=== PATIENT | female | born 1950 | race Hispanic/Latino ===

== ENCOUNTER 2017-09-11 07:39 | Day surgery (SDC) | payer MEDICARE, MEDICAID ==
[~2017-09-11] VITALS: Ht 154.9 cm; Wt 86.2 kg
[~2017-09-11 07:39] MED LIST: AMLODIPINE10 MG PO; LISINOP/HCTZ1 TA2 PO; LISINOPRIL20 MG PO; METFORMIN500 MG PO; MULT VITAMIN PO; SIMVASTATIN20 MG PO
[2017-09-11 10:55] VITALS: BP 118/62
== END 2017-09-11 10:45 | disposition home or self-care (01) ==
LOC: ORM 07:39
PROVIDERS: ATTEND Surgery
PROC: 0DJD8ZZ Inspection of Lower Intestinal Tract, Via Natural or Artificial Opening Endoscopic (ICD-10-PCS; principal; 2017-09-11)
DX: K64.1 Second degree hemorrhoids (principal); I10 Essential (primary) hypertension; E11.9 Type 2 diabetes mellitus without complications

== ENCOUNTER 2018-04-29 14:24 | Emergency (ER) | payer MEDICARE, MEDICAID ==
[~2018-04-29] VITALS: Ht 172.7 cm; Wt 100.0 kg
[2018-04-29] MEDS ORDERED: MOTRIN400 MG PO (16:30)
[2018-04-29] MEDS ORDERED: VOLTAREN1%GEL TOP (16:30)
[2018-04-29 16:55] VITALS: BP 137/78
== END 2018-04-29 16:55 | disposition home or self-care (01) ==
LOC: ED 14:24
DX: S46.911A Strain of unspecified muscle, fascia and tendon at shoulder and upper arm level, right arm, initial encounter (principal); E11.9 Type 2 diabetes mellitus without complications; X58.XXXA Exposure to other specified factors, initial encounter

== ENCOUNTER 2018-08-25 13:54 | Emergency (ER) | payer MEDICARE, MEDICAID ==
[~2018-08-25] VITALS: Ht 172.7 cm; Wt 88.2 kg
[~2018-08-25 13:54] MED LIST changes: +MOTRIN400 MG PO; +VOLTAREN1%GEL TOP
[2018-08-25] MEDS ORDERED: LOPRESSOR25 M1 PO (14:11)
[2018-08-25] MEDS ORDERED: TORADOL PO (16:07)
[2018-08-25 16:20] VITALS: BP 136/76
== END 2018-08-25 16:20 | disposition home or self-care (01) ==
LOC: ED 13:54
DX: S86.911A Strain of unspecified muscle(s) and tendon(s) at lower leg level, right leg, initial encounter (principal); E11.9 Type 2 diabetes mellitus without complications; I10 Essential (primary) hypertension; E78.5 Hyperlipidemia, unspecified; X58.XXXA Exposure to other specified factors, initial encounter; M25.561 Pain in right knee; M79.89 Other specified soft tissue disorders

== ENCOUNTER 2023-07-24 12:00 | Emergency (ER) | payer MEDICARE, MEDICAID ==
[2023-07-24] VITALS (10 sets, daily range): BP systolic 108–138; BP diastolic 57–75
[~2023-07-24] VITALS: Ht 172.7 cm; Wt 68.0 kg
[~2023-07-24 12:00] MED LIST changes: +LOPRESSOR25 M1 PO; +TORADOL PO
[2023-07-24 12:44] LABS: BASO% 0.2 % (0-3); EOS% 0.4 % (0-8); HEMATOCRIT 48.1 % (37.0-47.0); HEMOGLOBIN 16.2 g/dl (12.0-16.0); IMMATURE GRANULOCYTES 0.1 % (0.0-5.0); LYMPH% 15.1 % (15-41); MEAN CELL VOLUME 92.9 fL CALC (80.0-100.0); MEAN CORPUSCULAR HGB 31.3 pG CALC (26.0-32.0); MEAN CORPUSCULAR HGB CONC 33.7 g/dL CAL (32.0-36.0); NEUT# 7.13 thou/uL (2.00-7.15); NEUT% 76.2 % (42-76); RED BLOOD COUNT 5.18 mill/uL (4.20-5.60); RED CELL DISTRI WIDTH 12.1 % (11.5-15.5)
[2023-07-24 13:22] LABS: ALBUMIN 4.6 g/dL (3.2-5.0); ALKALINE PHOSPHATASE 143 u/l (38-126); ANION GAP 13 (6-22 (CALC)); BILIRUBIN, TOTAL 0.9 mg/dL (0.02-1.3); BUN 14 mg/dL (8-23); BUN/CREATININE RATIO 16 (12-20 (CALC)); CARBON DIOXIDE 31 mmol/l (22-30); CHLORIDE 100 mmol/l (95-108); CREATININE 0.8 mg/dL (0.5-1.0); GFR FOR AFR.AMER. > 60 ML/MIN (>=60 (CALC)); GFR OTHER RACES > 60 ML/MIN (>=60 (CALC)); LIPASE 47 u/l (23-300); SGOT/AST 44 u/l (9-36); SODIUM 139 mmol/l (137-146); TOTAL PROTEIN 8.5 g/dL (6.3-8.2)
[2023-07-24 16:26] LABS: URINE BILIRUBIN - DIPSTICK Negative (NEGATIVE); URINE BLOOD DIPSTICK Negative (NEGATIVE); URINE GLUCOSE - DIPSTICK Negative (NEGATIVE); URINE KETONE Negative (NEGATIVE); URINE LEUK ESTERASE Trace (NEGATIVE); URINE NITRITE - DIPSTICK Negative (Negative); URINE PH 8.5 (4.5-8.0); URINE PROTEIN - DIPSTICK Negative (NEG-TRACE); URINE SPECIFIC GRAVITY 1.015; URINE UROBILINOGEN - DIPSTICK 0.2 E.U./dL (0.2)
[2023-07-24 16:29] LABS: URINE COLOR Yellow
== END 2023-07-24 20:20 ==
LOC: ED 12:00
PROVIDERS: Nurse Practitioner
DX: K56.609 Unspecified intestinal obstruction, unspecified as to partial versus complete obstruction (principal); C18.9 Malignant neoplasm of colon, unspecified; I10 Essential (primary) hypertension; E11.9 Type 2 diabetes mellitus without complications; E78.5 Hyperlipidemia, unspecified; Z79.84 Long term (current) use of oral hypoglycemic drugs; Z90.49 Acquired absence of other specified parts of digestive tract
CPT/HCPCS: Q9967

== ENCOUNTER 2023-10-12 07:34 | Day surgery (SDC) | payer MEDICARE, MEDICAID ==
[~2023-10-12] VITALS: Ht 165.1 cm; Wt 78.5 kg
[~2023-10-12 07:34] MED LIST changes: +LEVOTHYROXIN75 MC1 PO; +METFORMIN HCL1000 MG PO; +NORVASC2.5 M1 PO
[2023-10-12] MEDS ORDERED: SODIUM CHLORIDE 0.9% 1,000 ML IV ONE (07:59)
[2023-10-12] MEDS ORDERED: FAMOTIDINE 10MG/ML 2ML SDV IV ONE (07:59)
[2023-10-12] MEDS ORDERED: CLINDAMYCIN PHOSPHATE IN D5W 50 ML IV ONE (07:59)
[2023-10-12] MEDS ORDERED: CLINDAMYCIN PHOSPHATE IV ONE (08:00)
[2023-10-12] MEDS ORDERED: LIDOcaine HCl 1% (Local Anesth.) 20 ML VIAL ONE (08:15)
[2023-10-12] MEDS ORDERED: PERCOCET 5/325M1 TAB PO (11:45)
[2023-10-12] MEDS ORDERED: SODIUM CHLORIDE 1,000 ML BTL IR ONE (11:47)
[2023-10-12] MEDS ORDERED: STERILE WATER FOR IRRIGATION 1,000 ML BTL IR ONE (11:47)
[2023-10-12 12:21] VITALS: BP 116/63
[2023-10-12] MEDS ORDERED: ONDANSETRON HCl 4 MG/2 ML SDV IV ONE (16:44)
[2023-10-12] MEDS ORDERED: PROPOFOL 200 MG/20 ML VIAL IV ONE (16:44)
[2023-10-12] MEDS ORDERED: LIDOCAINE HCL 2% 2ML SDV IV ONE (16:44)
[2023-10-12] MEDS ORDERED: ACETAMINOPHEN 1,000 MG/100 ML VIAL IV ONE (16:44)
[2023-10-12] MEDS ORDERED: KETOROLAC TROMETHAMINE 30 MG/ML SDV IV ONE (16:44)
[2023-10-12] MEDS ORDERED: GLYCOPYRROLATE 0.2 MG/ML IV ONE (16:44)
[2023-10-20] MEDS ORDERED: BACTRIM DS1 TAB PO (12:55)
== END 2023-10-12 12:35 | disposition home or self-care (01) ==
LOC: ORM 07:34
PROVIDERS: ATTEND Surgery
PROC: 0JQ80ZZ Repair Abdomen Subcutaneous Tissue and Fascia, Open Approach (ICD-10-PCS; principal; 2023-10-12)
DX: T81.31XA Disruption of external operation (surgical) wound, not elsewhere classified, initial encounter (principal); Y83.6 Removal of other organ (partial) (total) as the cause of abnormal reaction of the patient, or of later complication, without mention of misadventure at the time of the procedure; I10 Essential (primary) hypertension; E11.9 Type 2 diabetes mellitus without complications; Z79.84 Long term (current) use of oral hypoglycemic drugs; Z85.038 Personal history of other malignant neoplasm of large intestine
CPT/HCPCS: J0131; S0077

== ENCOUNTER 2024-08-21 14:50 | Observation (INO) | payer MEDICARE, MEDICAID ==
[~2024-08-21] VITALS: Ht 165.1 cm; Wt 78.4 kg
[2024-08-21] VITALS (12 sets, daily range): BP systolic 123–157; BP diastolic 61–87
[~2024-08-21 14:50] MED LIST changes: +BACTRIM DS1 TAB PO; +GABAPENTIN100 MG PO; +PERCOCET 5/325M1 TAB PO
[2024-08-21] MEDS ORDERED: ASPIRIN 81 MG/TAB PO ONE (15:10)
[2024-08-21] MEDS ORDERED: NITROGLYCERIN 0.4 MG/TAB SL ONE (15:10)
[2024-08-21 15:50] LABS: BASO% 0.5 % (0-3); EOS% 2.9 % (0-8); HEMATOCRIT 44.9 % (37.0-47.0); HEMOGLOBIN 14.4 g/dl (12.0-16.0); IMMATURE GRANULOCYTES 0.5 % (0.0-5.0); LYMPH% 39.2 % (15-41); MEAN CELL VOLUME 92.2 fL CALC (80.0-100.0); MEAN CORPUSCULAR HGB 29.6 pG CALC (26.0-32.0); MEAN CORPUSCULAR HGB CONC 32.1 g/dL CAL (32.0-36.0); MONO% 6.9 % (2-13); NEUT# 3.26 thou/uL (2.00-7.15); RED BLOOD COUNT 4.87 mill/uL (4.20-5.60); RED CELL DISTRI WIDTH 12.5 % (11.5-15.5)
[2024-08-21 16:01] LABS: ALBUMIN 4.9 g/dL (3.2-5.0); ALKALINE PHOSPHATASE 133 u/l (38-126); ANION GAP 17 (6-22 (CALC)); BUN 14 mg/dL (8-23); BUN/CREATININE RATIO 19 (12-20 (CALC)); CARBON DIOXIDE 20 mmol/l (22-30); CHLORIDE 107 mmol/l (95-108); CREATININE 0.7 mg/dL (0.5-1.0); ESTIMATED GFR 92 ML/MIN (>=90 (CALC)); POTASSIUM 3.8 mmol/l (3.5-5.1); SODIUM 140 mmol/l (137-146); TOTAL PROTEIN 8.3 g/dL (6.3-8.2)
[2024-08-21 16:02] LABS: BILIRUBIN, TOTAL 0.6 mg/dL (0.02-1.3); SGOT/AST 51 u/l (9-36)
[2024-08-21] MEDS ORDERED: METFORMIN HCL1000 MG PO (19:00)
[2024-08-21] MEDS ORDERED: LEXAPRO10 MG PO (19:00)
[2024-08-21] MEDS ORDERED: SIMVASTATIN20 M1 PO (19:00)
[2024-08-21] MEDS ORDERED: AMLODIPINE BESYL5 MG PO (19:01)
[2024-08-21] MEDS ORDERED: LISINOP/HCTZ1 TAB PO (19:02)
[2024-08-21] MEDS ORDERED: GABAPENTIN300 M2 PO (19:03)
[2024-08-21] MEDS ORDERED: MAGNESIUM HYDROXIDE 30 ML UDC PO PRN (20:10)
[2024-08-21] MEDS ORDERED: Zaleplon 5 MG/CAP PO PRN (20:10)
[2024-08-21] MEDS ORDERED: ACETAMINOPHEN 325 MG/TAB PO PRN (20:10)
[2024-08-21] MEDS ORDERED: DEXTROSE 250 ML IV PRN (20:15)
[2024-08-21] MEDS ORDERED: INSULIN LISPRO 100 UNITS/ML ML SC SCH (21:00)
[2024-08-21] MEDS ORDERED: ENOXAPARIN SODIUM 40 MG/0.4 ML SYR SC SCH (21:00)
[2024-08-21] MEDS ORDERED: GABAPENTIN 300 MG/CAP PO SCH (21:00)
[2024-08-22] VITALS: BP 128/76
[2024-08-22 04:00] VITALS: BP 131/70
[2024-08-22 04:05] VITALS: BP 131/70
[2024-08-22 06:06] LABS: CHOLESTEROL HDL RATIO 3.2 (<4.4 (CALC)); MAGNESIUM 2.1 mg/dL (1.6-2.3)
[2024-08-22 06:51] VITALS: BP 127/70
[2024-08-22 08:21] VITALS: BP 127/70
[2024-08-22] MEDS ORDERED: amLODIPine BESYLATE 5 MG/TAB PO SCH (09:00)
[2024-08-22] MEDS ORDERED: LISINOPRIL 10 MG/TAB PO SCH (09:00)
[2024-08-22] MEDS ORDERED: ESCITALOPRAM 10 MG/TAB PO SCH (09:00)
[2024-08-22] MEDS ORDERED: INFLUENZA VIRUS VACCINE FLUZONE HD 2024/25 0.5 ML INJ IM SCH (10:00)
[2024-08-22] MEDS ORDERED: ASPIRIN 81 LOW81 MG PO (10:39)
== END 2024-08-22 11:08 | disposition home or self-care (01) ==
LOC: ED 14:50 → ED-I 18:00 → ED 18:16 → MS2 18:17
PROVIDERS: Family Medicine; ADMIT Internal Medicine; ATTEND Internal Medicine
DX: R07.9 Chest pain, unspecified (principal); I10 Essential (primary) hypertension; E11.9 Type 2 diabetes mellitus without complications; E78.5 Hyperlipidemia, unspecified; E03.9 Hypothyroidism, unspecified; Z85.038 Personal history of other malignant neoplasm of large intestine; Z92.21 Personal history of antineoplastic chemotherapy; Z79.84 Long term (current) use of oral hypoglycemic drugs; Z23 Encounter for immunization
CPT/HCPCS: 90662; G0378; J1650

== ENCOUNTER 2024-12-13 11:34 | Emergency (ER) | payer MEDICARE ==
[~2024-12-13] VITALS: Ht 165.1 cm; Wt 80.0 kg
[2024-12-13] VITALS (11 sets, daily range): BP systolic 135–157; BP diastolic 69–95
[~2024-12-13 11:34] MED LIST changes: +AMLODIPINE BESYL5 MG PO; +ASPIRIN 81 LOW81 MG PO; +GABAPENTIN300 M2 PO; +LEXAPRO10 MG PO; +LISINOP/HCTZ1 TAB PO; +SIMVASTATIN20 M1 PO
[2024-12-13 12:47] LABS: BASO% 0.6 % (0-3); EOS% 1.7 % (0-8); HEMATOCRIT 41.3 % (37.0-47.0); HEMOGLOBIN 13.2 g/dl (12.0-16.0); IMMATURE GRANULOCYTES 0.3 % (0.0-5.0); LYMPH% 22.6 % (15-41); MEAN CELL VOLUME 93.4 fL CALC (80.0-100.0); MEAN CORPUSCULAR HGB 29.9 pG CALC (26.0-32.0); MONO% 6.2 % (2-13); NEUT# 4.4 thou/uL (2.00-7.15); NEUT% 68.6 % (42-76); RED BLOOD COUNT 4.42 mill/uL (4.20-5.60); RED CELL DISTRI WIDTH 12.2 % (11.5-15.5)
[2024-12-13 12:59] LABS: ALBUMIN 4.4 g/dL (3.2-5.0); BILIRUBIN, TOTAL 0.7 mg/dL (0.02-1.3); CREATININE 0.7 mg/dL (0.5-1.0); TOTAL PROTEIN 7.5 g/dL (6.3-8.2)
[2024-12-13 13:03] LABS: INTERNATIONAL NORMALIZED RATIO 1.1 RATIO (0.7-1.3)
[2024-12-13 13:10] LABS: PROTHROMBIN TIME 11.6 SECONDS (9.0-12.5)
[2024-12-13 14:58] LABS: URINE BILIRUBIN - DIPSTICK Negative (NEGATIVE); URINE BLOOD DIPSTICK Trace-lysed (NEGATIVE); URINE GLUCOSE - DIPSTICK Negative (NEGATIVE); URINE KETONE Negative (NEGATIVE); URINE LEUK ESTERASE Negative (NEGATIVE); URINE NITRITE - DIPSTICK Negative (Negative); URINE PROTEIN - DIPSTICK Negative (NEG-TRACE); URINE UROBILINOGEN - DIPSTICK 0.2 E.U./dL (0.2)
[2024-12-13 15:01] LABS: URINE COLOR Yellow
[2024-12-14] MEDS ORDERED: CIPROFLOXACN500 MG PO (07:35)
[2024-12-14] MEDS ORDERED: METRONIDAZOLE500 MG PO (07:35)
[2024-12-14] MEDS ORDERED: ZOFRAN4 MG/TAB PO (07:37)
== END 2024-12-13 15:31 | disposition home or self-care (01) ==
LOC: ED 11:34
PROVIDERS: Family Medicine
DX: M79.10 Myalgia, unspecified site (principal); R51.9 Headache, unspecified; E11.9 Type 2 diabetes mellitus without complications; F32.A Depression, unspecified; E78.00 Pure hypercholesterolemia, unspecified; E03.9 Hypothyroidism, unspecified; Z79.84 Long term (current) use of oral hypoglycemic drugs; Z20.822 Contact with and (suspected) exposure to COVID-19

== ENCOUNTER 2024-12-14 01:52 | Emergency (ER) | payer MEDICARE ==
[~2024-12-14] VITALS: Ht 165.1 cm; Wt 76.0 kg
[2024-12-14] VITALS (12 sets, daily range): BP systolic 128–159; BP diastolic 67–86
[2024-12-14] MEDS ORDERED: KETOROLAC TROMETHAMINE 30 MG/ML SDV IV ONE (02:45)
[2024-12-14] MEDS ORDERED: DiphenhydrAMINE HCL 50 MG/ML SDV IV ONE (02:45)
[2024-12-14] MEDS ORDERED: ACETAMINOPHEN 500 MG TAB PO ONE (02:45)
[2024-12-14] MEDS ORDERED: SODIUM CHLORIDE 0.9% 1,000 ML IV ONE (02:45)
[2024-12-14 03:05] LABS: BASO% 0.5 % (0-3); EOS% 3.6 % (0-8); HEMOGLOBIN 13.7 g/dl (12.0-16.0); IMMATURE GRANULOCYTES 0.2 % (0.0-5.0); LYMPH% 40.4 % (15-41); MEAN CELL VOLUME 91.5 fL CALC (80.0-100.0); MEAN CORPUSCULAR HGB 29.8 pG CALC (26.0-32.0); MEAN CORPUSCULAR HGB CONC 32.6 g/dL CAL (32.0-36.0); MONO% 8.1 % (2-13); NEUT# 3.14 thou/uL (2.00-7.15); NEUT% 47.2 % (42-76); RED BLOOD COUNT 4.59 mill/uL (4.20-5.60); RED CELL DISTRI WIDTH 12.2 % (11.5-15.5)
[2024-12-14 03:09] LABS: CPK 156 u/l (30-135); MAGNESIUM 1.8 mg/dL (1.6-2.3)
[2024-12-14 03:27] LABS: URINE BILIRUBIN - DIPSTICK Negative (NEGATIVE); URINE BLOOD DIPSTICK Negative (NEGATIVE); URINE COLOR Yellow; URINE GLUCOSE - DIPSTICK Negative (NEGATIVE); URINE KETONE 15 mg/dL (NEGATIVE); URINE LEUK ESTERASE Negative (NEGATIVE); URINE NITRITE - DIPSTICK Negative (Negative); URINE PROTEIN - DIPSTICK Negative (NEG-TRACE); URINE SPECIFIC GRAVITY 1.015; URINE UROBILINOGEN - DIPSTICK 0.2 E.U./dL (0.2)
[2024-12-14] MEDS ORDERED: DIATRIZOATE MEGLUMINE & SODIUM 30 ML/BTL PO ONE (03:40)
[2024-12-14 06:13] LABS: ALBUMIN 4.3 g/dL (3.2-5.0); BILIRUBIN, TOTAL 0.6 mg/dL (0.02-1.3); CREATININE 0.6 mg/dL (0.5-1.0); POTASSIUM 3.7 mmol/l (3.5-5.1); TOTAL PROTEIN 7.2 g/dL (6.3-8.2)
[2024-12-14] MEDS ORDERED: LACTATED RINGER'S 1,000 ML IV ONE (06:25)
[2024-12-14] MEDS ORDERED: CIPROFLOXACN500 MG PO (07:35)
[2024-12-14] MEDS ORDERED: metroNIDAZOLE 500 MG/TAB PO ONE (07:35)
[2024-12-14] MEDS ORDERED: CIPROFLOXACIN HCL 500 MG/TAB PO ONE (07:35)
[2024-12-14] MEDS ORDERED: METRONIDAZOLE500 MG PO (07:35)
[2024-12-14] MEDS ORDERED: ZOFRAN4 MG/TAB PO (07:37)
== END 2024-12-14 08:03 | disposition home or self-care (01) ==
LOC: ED 01:52
PROVIDERS: Family Medicine
DX: M79.10 Myalgia, unspecified site (principal); K52.9 Noninfective gastroenteritis and colitis, unspecified; I10 Essential (primary) hypertension; E11.9 Type 2 diabetes mellitus without complications; Z85.038 Personal history of other malignant neoplasm of large intestine; Z90.49 Acquired absence of other specified parts of digestive tract; Z92.21 Personal history of antineoplastic chemotherapy; Z20.822 Contact with and (suspected) exposure to COVID-19
CPT/HCPCS: J1200; Q9967

== ENCOUNTER 2024-12-16 03:46 | Emergency (ER) | payer MEDICARE ==
[~2024-12-16] VITALS: Ht 165.1 cm; Wt 77.0 kg
[~2024-12-16 03:46] MED LIST changes: +CIPROFLOXACN500 MG PO; +METRONIDAZOLE500 MG PO; +ZOFRAN4 MG/TAB PO
[2024-12-16] MEDS ORDERED: KETOROLAC TROMETHAMINE 30 MG/ML SDV IV ONE (04:20)
[2024-12-16] MEDS ORDERED: SODIUM CHLORIDE 0.9% 1,000 ML IV ONE ×2 (04:20→05:30)
[2024-12-16] MEDS ORDERED: DiphenhydrAMINE HCL 50 MG/ML SDV IV ONE (04:20)
[2024-12-16] MEDS ORDERED: PROMETHAZINE HCL 25 MG/ML AMP IV ONE (04:20)
[2024-12-16] MEDS ORDERED: ACETAMINOPHEN 500 MG TAB PO ONE (04:20)
[2024-12-16 05:02] LABS: BASO% 0.7 % (0-3); EOS% 2.8 % (0-8); HEMATOCRIT 40.9 % (37.0-47.0); HEMOGLOBIN 13.3 g/dl (12.0-16.0); IMMATURE GRANULOCYTES 0.2 % (0.0-5.0); LYMPH% 29.1 % (15-41); MEAN CELL VOLUME 91.3 fL CALC (80.0-100.0); MEAN CORPUSCULAR HGB 29.7 pG CALC (26.0-32.0); MEAN CORPUSCULAR HGB CONC 32.5 g/dL CAL (32.0-36.0); MONO% 8.3 % (2-13); NEUT# 3.6 thou/uL (2.00-7.15); NEUT% 58.9 % (42-76); RED BLOOD COUNT 4.48 mill/uL (4.20-5.60); RED CELL DISTRI WIDTH 12.3 % (11.5-15.5)
[2024-12-16 05:15] LABS: ALBUMIN 4.6 g/dL (3.2-5.0); ALKALINE PHOSPHATASE 101 u/l (38-126); BILIRUBIN, TOTAL 0.8 mg/dL (0.02-1.3); BUN 10 mg/dL (8-23); BUN/CREATININE RATIO 13 (12-20 (CALC)); CARBON DIOXIDE 22 mmol/l (22-30); CHLORIDE 100 mmol/l (95-108); CPK 134 u/l (30-135); CREATININE 0.8 mg/dL (0.5-1.0); ESTIMATED GFR 78 ML/MIN (>=90 (CALC)); MAGNESIUM 1.6 mg/dL (1.6-2.3); POTASSIUM 3.6 mmol/l (3.5-5.1); TOTAL PROTEIN 7.7 g/dL (6.3-8.2)
[2024-12-16 05:18] LABS: ACT PARTIAL THROMBO TIME 24.6 SECONDS (20.0-32.5); INTERNATIONAL NORMALIZED RATIO 1.1 RATIO (0.7-1.3)
[2024-12-16 05:20] LABS: ANION GAP 17 (6-22 (CALC)); SODIUM 135 mmol/l (137-146)
[2024-12-16 05:21] LABS: C-REACTIVE PROTEIN < 0.5 mg/dL (0-0.9); SGOT/AST 73 u/l (9-36)
[2024-12-16 05:26] LABS: PROTHROMBIN TIME 11.7 SECONDS (9.0-12.5)
[2024-12-16] MEDS ORDERED: TYLENOL # 31 TA1 PO (06:56)
[2024-12-16 07:03] VITALS: BP 139/88
[2024-12-16 07:08] LABS: URINE BILIRUBIN - DIPSTICK Negative (NEGATIVE); URINE BLOOD DIPSTICK Negative (NEGATIVE); URINE GLUCOSE - DIPSTICK Negative (NEGATIVE); URINE KETONE Negative (NEGATIVE); URINE LEUK ESTERASE Negative (NEGATIVE); URINE NITRITE - DIPSTICK Negative (Negative); URINE PROTEIN - DIPSTICK Negative (NEG-TRACE); URINE UROBILINOGEN - DIPSTICK 0.2 E.U./dL (0.2)
[2024-12-16 07:09] LABS: URINE COLOR Yellow
== END 2024-12-16 07:08 | disposition home or self-care (01) ==
LOC: ED 03:46
PROVIDERS: Family Medicine
DX: K52.9 Noninfective gastroenteritis and colitis, unspecified (principal); R51.9 Headache, unspecified; M79.10 Myalgia, unspecified site; I10 Essential (primary) hypertension; E11.9 Type 2 diabetes mellitus without complications; E78.5 Hyperlipidemia, unspecified; Z79.84 Long term (current) use of oral hypoglycemic drugs
CPT/HCPCS: J1100; J1200; J2550

== ENCOUNTER 2024-12-18 09:04 | Observation (INO) | payer MEDICARE ==
[2024-12-18] VITALS (20 sets, daily range): BP systolic 144–179; BP diastolic 64–129
[~2024-12-18] VITALS: Ht 165.1 cm; Wt 77.8 kg
[~2024-12-18 09:04] MED LIST changes: +TYLENOL # 31 TA1 PO
--- NOTE | 2024-12-18 09:04 | NUR ---
PT TO ER ROOM 4 VIA EMS
[2024-12-18] MEDS ORDERED: KETOROLAC TROMETHAMINE 15 MG/ML SDV IV ONE (09:25)
--- NOTE | 2024-12-18 09:43 | NUR ---
PT TO ER BATHROOM VIA WHEELCHAIR WITH ASSIATNCE FROM NURSE FOR URINE COLLECTION.
[2024-12-18 09:44] LABS: BASO% 0.6 % (0-3); EOS% 1.4 % (0-8); HEMATOCRIT 44.6 % (37.0-47.0); HEMOGLOBIN 14.4 g/dl (12.0-16.0); IMMATURE GRANULOCYTES 0.4 % (0.0-5.0); LYMPH% 31.8 % (15-41); MEAN CELL VOLUME 92.1 fL CALC (80.0-100.0); MEAN CORPUSCULAR HGB 29.8 pG CALC (26.0-32.0); MEAN CORPUSCULAR HGB CONC 32.3 g/dL CAL (32.0-36.0); MONO% 7.2 % (2-13); NEUT# 4.86 thou/uL (2.00-7.15); NEUT% 58.6 % (42-76); RED BLOOD COUNT 4.84 mill/uL (4.20-5.60); RED CELL DISTRI WIDTH 12.6 % (11.5-15.5)
[2024-12-18 10:02] LABS: ALBUMIN 4.8 g/dL (3.2-5.0); ALKALINE PHOSPHATASE 123 u/l (38-126); ANION GAP 16 (6-22 (CALC)); BILIRUBIN, TOTAL 0.6 mg/dL (0.02-1.3); BUN 11 mg/dL (8-23); BUN/CREATININE RATIO 15 (12-20 (CALC)); CARBON DIOXIDE 21 mmol/l (22-30); CHLORIDE 105 mmol/l (95-108); CPK 97 u/l (30-135); CREATININE 0.8 mg/dL (0.5-1.0); ESTIMATED GFR 78 ML/MIN (>=90 (CALC)); LIPASE 796 u/l (23-300); POTASSIUM 4.1 mmol/l (3.5-5.1); SGOT/AST 85 u/l (9-36); SODIUM 138 mmol/l (137-146); TOTAL PROTEIN 7.8 g/dL (6.3-8.2)
[2024-12-18 10:19] LABS: URINE BILIRUBIN - DIPSTICK Negative (NEGATIVE); URINE BLOOD DIPSTICK Negative (NEGATIVE); URINE GLUCOSE - DIPSTICK Negative (NEGATIVE); URINE KETONE Trace mg/dL (NEGATIVE); URINE LEUK ESTERASE Negative (NEGATIVE); URINE NITRITE - DIPSTICK Negative (Negative); URINE PROTEIN - DIPSTICK Negative (NEG-TRACE); URINE SPECIFIC GRAVITY 1.015; URINE UROBILINOGEN - DIPSTICK 0.2 E.U./dL (0.2)
[2024-12-18 10:25] LABS: URINE COLOR Yellow
--- NOTE | 2024-12-18 10:45 | NUR ---
PT RESTINNG IN BED. VSS. AWAITING RESULTS.
[2024-12-18] MEDS ORDERED: SODIUM CHLORIDE 0.9% 1,000 ML IV ONE (11:00)
--- NOTE | 2024-12-18 12:00 | NUR ---
PT RESTING IN BED, YEYES CLOSED. VSS. DENIES ANY NEEDS.
--- NOTE | 2024-12-18 13:22 | NUR ---
PT TO ER BATHROOM WITH ASSISTANCE. DENIES ANY CURRENT NEEDS.
[2024-12-18] MEDS ORDERED: ACETAMINOPHEN 325 MG/TAB PO PRN (13:30)
[2024-12-18] MEDS ORDERED: MAGNESIUM HYDROXIDE 30 ML UDC PO PRN (13:30)
[2024-12-18] MEDS ORDERED: SODIUM CHLORIDE 0.9% 1,000 ML IV PRN (13:30)
[2024-12-18] MEDS ORDERED: ONDANSETRON HCl 4 MG/2 ML SDV IV PRN (13:35)
[2024-12-18] MEDS ORDERED: LEVOTHYROXIN75 MCG PO (13:35)
[2024-12-18] MEDS ORDERED: TRAZODONE50 MG PO (13:35)
[2024-12-18] MEDS ORDERED: KETOROLAC TROMETHAMINE 15 MG/ML SDV IV PRN (14:00)
--- NOTE | 2024-12-18 14:07 | NUR ---
PHARMACYS STUDENT AT BEDSIDE TO COMPLETE MED REC.
--- NOTE | 2024-12-18 14:30 | NUR ---
PTREPORT CALLED AND GIVEN TO BERNADETTE TIPTON
--- NOTE | 2024-12-18 15:30 | NUR ---
PT IS ADMITTED TO THE HOSPITAL WITH ABDMINAL PAIN AND PANCREATITIS. PT IS A&OX4; ICELANDIC SPEAKING ONLY. PT IS STABLE BUT COMPLAINS OF PAIN; WILL MEDICATE NEEDED. PT CAN MOVE ALL EXTREMITES BUT HAS WEAKNESS. PT IS ABLE TO MAKE HER NEEDS KNOWN; STATES NO FURTHER NEEDS AT THIS TIME. BED ALARM IS ON; AND CALL LIGHT IS WITHIN REACH.
[2024-12-18] MEDS ORDERED: INSULIN LISPRO 100 UNITS/ML ML SC SCH (17:00)
--- NOTE | 2024-12-18 20:00 | NUR ---
RECEIVED REPORT FROM NURSE RIC, PATIENT RESTING IN BED, FAMLITY IN ROOM, PATIENT ALERT ORIENTED ABLE TO MAKE NEEDS KNONW, C/O PAIN ON BILAT EXTREMITIES WILL MEDICATE, IV INFUSING WELL ON RAC G 20 NS @ 100CC/HR, ON TELEMETRY, REMAINS ON CLEAR LIQUID DIET TOLERATED,CALL LIGHT IN REACHED.
[2024-12-18] MEDS ORDERED: traZODone HCL 50 MG/TAB PO SCH (21:00)
[2024-12-18] MEDS ORDERED: ENOXAPARIN SODIUM 40 MG/0.4 ML SYR SC SCH (21:00)
[2024-12-19] VITALS (8 sets, daily range): BP systolic 106–156; BP diastolic 52–77
--- NOTE | 2024-12-19 00:54 | NUR ---
DASHANET RESTING IN BED, EYES CLOSED, AFMILY IN ROOM, NO DISCOMFORTS NOTED AT THIS TIME, CALL LIGHT WITHIN REACHED.
[2024-12-19 04:39] LABS: BASO% 0.6 % (0-3); EOS% 4.4 % (0-8); HEMATOCRIT 40.4 % (37.0-47.0); HEMOGLOBIN 12.9 g/dl (12.0-16.0); IMMATURE GRANULOCYTES 0.2 % (0.0-5.0); LYMPH% 33.9 % (15-41); MEAN CELL VOLUME 92.2 fL CALC (80.0-100.0); MEAN CORPUSCULAR HGB 29.5 pG CALC (26.0-32.0); MEAN CORPUSCULAR HGB CONC 31.9 g/dL CAL (32.0-36.0); MONO% 9.1 % (2-13); NEUT# 2.49 thou/uL (2.00-7.15); NEUT% 51.8 % (42-76); RED BLOOD COUNT 4.38 mill/uL (4.20-5.60); RED CELL DISTRI WIDTH 12.5 % (11.5-15.5)
--- NOTE | 2024-12-19 04:54 | NUR ---
PATIENT ASSISTED TO THE BATHROOM AND BACK IN BED, BREATHING EVEN UNLABORED, CALL LIGHT WITHIN REACHED.
[2024-12-19 05:00] LABS: ALBUMIN 3.5 g/dL (3.2-5.0); BILIRUBIN, TOTAL 0.6 mg/dL (0.02-1.3); CREATININE 0.6 mg/dL (0.5-1.0); MAGNESIUM 1.8 mg/dL (1.6-2.3); POTASSIUM 3.6 mmol/l (3.5-5.1); TOTAL PROTEIN 6.1 g/dL (6.3-8.2)
[2024-12-19 05:12] LABS: CHOLESTEROL HDL RATIO 2.7 (<4.4 (CALC))
[2024-12-19] MEDS ORDERED: LEVOTHYROXINE SODIUM 75 MCG/TAB PO SCH (06:00)
--- NOTE | 2024-12-19 08:24 | NUR ---
PT IS ALERT PRIMARY LANGUAGE IS [place]. PT SON AT BEDSIDE TO HELP WITH TRANSLATION FOR CARE AND EDUCATION. PT WAS OBSERVED ON [facility] SAFETY ROUNDS SITTING UP IN HER BED. PT STATED SHE HAD A BM THIS AM AND SHE IS VOIDING WELL WITH NO ISSUES. PT IV SITE IS CLEAN AND DRY AND NO S/O INFECTION. PT CALL RALPH IS A REACH. ALL SAFETY MEASURES IN PLACE. NURSING WILL CONTINUE TO MONITOR.
[2024-12-19] MEDS ORDERED: ESCITALOPRAM 10 MG/TAB PO SCH (09:00)
[2024-12-19] MEDS ORDERED: LISINOPRIL 10 MG/TAB PO SCH (09:00)
[2024-12-19] MEDS ORDERED: amLODIPine BESYLATE 5 MG/TAB PO SCH (09:00)
--- NOTE | 2024-12-19 12:35 | NUR ---
PT IS IN HER ROOM SITTING IN THE RECLINER EATING HER CLEAR LIQUID DIET LUNCH. PT HEADACHE HAS SUBSIDED PAIN MEDICATION GIVEN WITH POSITIVE EFFECT. PT SON IS STILL AT BEDSIDE. PT HAS NO C/O DISCOMFORT. PT CALL RALPH IS AT REACH NURSING WILL CONTINUE TO MONITOR.
--- NOTE | 2024-12-19 16:04 | NUR ---
PT IS ALERT AND CAN MAKE HER NEEDS KNOWN. PT IVF ARE STILL INFUSING WELL ORDERED. PT SON AT BEDSIDE. PT STATES SHE HAS NO C/O PAIN OR DISCOMFORT AT THIS TIME. PT CALL RALPH IS AT REACH. PT WATCHING TV WITH HER SON. ALL SAFETY MEASURES IN PLACE.
--- NOTE | 2024-12-19 16:10 | NUR ---
nurse notified of patient glucose level is 76.
--- NOTE | 2024-12-19 20:00 | NUR ---
RECEIVED REPORT FROM NURSE RODRIGO, PATIENT ALERT ORIENTED, ABLE TO MAKE NEEDS KNOWN, REMAINS ON CLEAR LIQUID DIET TOLERATED, FAMILY IN ROOM, LUNG SOUNDS CLEAR, DENIES PAIN AT THIS TIME, BREATHING UNLBAORED, HOOKED IV NS @ 100CC/HR INFUSING WELL, CALL LIGHT WITHIN REACHED.
[2024-12-20] VITALS: BP 132/56
--- NOTE | 2024-12-20 | NUR ---
PATIENT RESTING IN BED, WITH EYES CLOSED, BREATHING EVEN UNALBORED CALL LIGHT WITHIN REACHED.
[2024-12-20 00:15] VITALS: BP 132/56
--- NOTE | 2024-12-20 04:55 | NUR ---
PATIENT RESTING IN BED, EYES CLOSED, NO DISCOMFORTS NOTRED AT THIS TIME, CALL SOFYA DURAN REACHED.
[2024-12-20 05:10] VITALS: BP 128/54
[2024-12-20 05:19] VITALS: BP 128/54
[2024-12-20 06:03] LABS: BASO% 0.6 % (0-3); EOS% 3.3 % (0-8); HEMATOCRIT 41.2 % (37.0-47.0); HEMOGLOBIN 13.4 g/dl (12.0-16.0); IMMATURE GRANULOCYTES 0.1 % (0.0-5.0); MEAN CELL VOLUME 92.8 fL CALC (80.0-100.0); MEAN CORPUSCULAR HGB 30.2 pG CALC (26.0-32.0); MEAN CORPUSCULAR HGB CONC 32.5 g/dL CAL (32.0-36.0); MONO% 8.2 % (2-13); NEUT% 44.8 % (42-76); RED BLOOD COUNT 4.44 mill/uL (4.20-5.60); RED CELL DISTRI WIDTH 12.7 % (11.5-15.5)
[2024-12-20 06:06] LABS: ALBUMIN 3.7 g/dL (3.2-5.0); BILIRUBIN, TOTAL 0.6 mg/dL (0.02-1.3); CREATININE 0.7 mg/dL (0.5-1.0); MAGNESIUM 1.6 mg/dL (1.6-2.3); POTASSIUM 3.6 mmol/l (3.5-5.1); TOTAL PROTEIN 6.6 g/dL (6.3-8.2)
[2024-12-20 06:29] VITALS: BP 146/66
--- NOTE | 2024-12-20 07:35 | NUR ---
PT IS AOX3, RESPIRATIONS ARE EVEN AND UNLABORED ON ROOM AIR, LUNGS ARE CLEAR, BOWEL SOUNDS ARE HYPERACTIVE, PEDALPULSES ARE PALPABL TO TOUCH, PT DENIES PAIN AT THIS TIME.
[2024-12-20 10:29] VITALS: BP 135/69
[2024-12-20] MEDS ORDERED: NORVASC PO (11:38)
--- NOTE | 2024-12-20 13:03 | NUR ---
REVIEWED DISCHARGE INSTRUCTIONS WITH PT AND PT'S SPOUSE. ANSWERED ANY QUESTIONS, REMOVED IV, REMOVED TELE AND PLACED IT IN RETURN BIN AT NURSES STATION.
== END 2024-12-20 13:00 | disposition home or self-care (01) ==
LOC: ED 09:04 → ED-I 11:37 → ED 11:37 → MS2 13:07
PROVIDERS: Family Medicine; Nurse Practitioner Family; ADMIT Internal Medicine; ATTEND Internal Medicine
DX: K52.9 Noninfective gastroenteritis and colitis, unspecified (principal); K85.90 Acute pancreatitis without necrosis or infection, unspecified; I10 Essential (primary) hypertension; E11.9 Type 2 diabetes mellitus without complications; E78.5 Hyperlipidemia, unspecified; E03.9 Hypothyroidism, unspecified; Z85.038 Personal history of other malignant neoplasm of large intestine; Z92.21 Personal history of antineoplastic chemotherapy; Z90.49 Acquired absence of other specified parts of digestive tract; Z79.84 Long term (current) use of oral hypoglycemic drugs; Z20.822 Contact with and (suspected) exposure to COVID-19
CPT/HCPCS: G0378; J0744; J1650; J1815; J1836; J1885; Q9967